=== PATIENT | male | born 1970 | race Caucasian/White ===

== ENCOUNTER 2018-10-19 07:55 | Day surgery (SDC) | payer OTHER ==
[~2018-10-19] VITALS: Ht 182.9 cm; Wt 114.8 kg
[~2018-10-19 07:55] MED LIST: PRINIVIL10 MG PO; RT ADVAIR 228 DISKUS IH; ZOLOFT 100MG100 MG PO
[2018-10-19 08:23] VITALS: BP 129/79; PULSE 74; TEMP 97.2
[2018-10-19] MEDS ORDERED: LOPRESSOR 550 MG/TAB PO (08:29)
[2018-10-19] MEDS ORDERED: NORVASC 5MG5 MG/TAB PO (08:31)
[2018-10-19] MEDS ORDERED: HYZAAR 50-12.1 UDTAB PO (08:31)
[2018-10-19] MEDS ORDERED: VASCEPA1 GM PO (08:32)
[2018-10-19 10:00] VITALS: BP 136/80; PULSE 71; TEMP 97.6
--- NOTE | 2018-10-19 10:00 | NUR ---
Pt arrived back to room from Endo procedure. Pt alert and oriented. Pt walked to chair with steady gait, x1 nurse assist. Denies any pain or nausea. Request sprite and crackers at this time. Vital signs stable. Pt's in room. CAll light in reach.
--- NOTE | 2018-10-19 10:02 | NUR ---
Report received from NAHID Rodriguez.
[2018-10-19 10:15] VITALS: BP 128/77; PULSE 69; TEMP 97.6
--- NOTE | 2018-10-19 10:21 | NUR ---
Pt tolerating drinks and crackers. Denies any nausea. Pt's family in room. Call light in reach.
[2018-10-19 10:30] VITALS: BP 135/84; PULSE 68; TEMP 97.6
--- NOTE | 2018-10-19 10:55 | NUR ---
Discharge paperwork given to pt. All questions answered to pt's satisfaction. Discharge instructions, med list and procedure information given to pt.
--- NOTE | 2018-10-19 10:58 | NUR ---
Pt discharged from unit. Pt left unit via wheelchair to private vehicle driven by pt's mother.
== END 2018-10-19 10:58 | disposition home or self-care (01) ==
LOC: SDCO 07:55
DX: D12.8 Benign neoplasm of rectum (principal); K57.30 Diverticulosis of large intestine without perforation or abscess without bleeding; K64.8 Other hemorrhoids; I10 Essential (primary) hypertension; E78.1 Pure hyperglyceridemia; Z90.49 Acquired absence of other specified parts of digestive tract; Z88.5 Allergy status to narcotic agent
CPT/HCPCS: J2250; J3010

== ENCOUNTER 2021-01-10 19:06 | Inpatient (IN) | payer BC ==
[~2021-01-10] VITALS: Ht 182.9 cm; Wt 110.6 kg
[~2021-01-10 19:06] MED LIST changes: +HYZAAR 50-12.1 UDTAB PO; +LOPRESSOR 550 MG/TAB PO; +NORVASC 5MG5 MG/TAB PO; +VASCEPA1 GM PO
[2021-01-10 20:54] LABS: HEMATOCRIT 42.3 % (42.0-52.0); HEMOGLOBIN 15.2 g/dl (13.5-18.0); MEAN CELL VOLUME 85 fl (80.0-100.0); MEAN CORPUSCULAR HEMOGLOBIN 31 pg (27.0-31.0); MEAN CORPUSCULAR HGB CONC 36 g/dl (33.0-37.0); MEAN PLATELET VOLUME 12.3 fl (7.4-10.4); PLATELET COUNT 102 K/mm3 (130-400); RED BLOOD COUNT 4.96 M/mm3 (4.20-5.60); REDCELL DISTRIBUTION WIDTH-CV 11.8 % (11.5-14.5)
[2021-01-10 21:05] LABS: ALANINE AMINOTRANSFERASE 69 U/L (4-49); ALBUMIN 4.1 gm/dL (3.5-5.0); ALKALINE PHOSPHATASE 69 U/L (50-136); ANION GAP 10 mmol/L (7-16); AST,SGOT 56 U/L (15-37); BILIRUBIN,TOTAL 0.3 mg/dL (0.0-1.0); BLOOD UREA NITROGEN 22 mg/dL (9-20); CALCIUM 8.7 mg/dL (8.4-10.2); CARBON DIOXIDE 28 mmol/L (22-30); CHLORIDE 97 mmol/L (98-107); CREATININE, serum 0.92 (0.66-1.25); GLUCOSE 116 mg/dL (74-106); POTASSIUM 3.2 mmol/L (3.4-5.0); SODIUM 135 mmol/L (137-145); TOTAL PROTEIN 7.8 gm/dL (6.4-8.2)
[2021-01-10 21:16] LABS: TROPONIN-I < 0.012 ng/mL (0.000-0.035)
[2021-01-10 21:56] LABS: BAND 16 % (0-10); LYMPHOCYTE 25 % (20.0-51.0); METAMYELOCYTE 2 % (0-0); NEUTROPHILS 55 % (42.0-75.2)
[2021-01-10 21:57] LABS: PLATELET ESTIMATE DECREASED (NORMAL)
[2021-01-10 22:17] LABS: HOWELL-JOLLY BODIES 1+
[2021-01-10] MEDS ORDERED: AMOXICILLIN 8751 TAB PO (22:52)
[2021-01-10] MEDS ORDERED: DIMETAPP COLD PO (22:54)
[2021-01-10] MEDS ORDERED: TOPROL XL 50MG50 MG PO (23:49)
[2021-01-10] MEDS ORDERED: APRESOLINE 10MG10 MG PO (23:50)
[2021-01-10] MEDS ORDERED: WELLBUTRIN XL150 MG PO (23:51)
[2021-01-10] MEDS ORDERED: VASCEPA1 GM PO (23:51)
[2021-01-11] VITALS (7 sets, daily range): BP systolic 108–150; BP diastolic 56–84; PULSE 69–81; TEMP 97.9–99
--- NOTE | 2021-01-11 01:30 | NUR ---
Patient to medical room 306 at this time. He has no complaints of pain and does not appear to be in acute distress. He wears 2 liters 02 and is satting 96% with signs of increased work of breathing. Patient is educated on room ammenities and visiting policy for COVID patients. Med Rec completed. Awaiting orders. Will continue to monitor.
[2021-01-11 02:00] LABS: C-REACTIVE PROTEIN 6.6 mg/dL (0.0-0.9)
[2021-01-11 06:49] LABS: INR 1.1 (0.8-3.0); PROTHROMBIN TIME 12.4 SECONDS (9.7-12.8)
[2021-01-11 06:51] LABS: PARTIAL THROMBOPLASTIN TIME 27.3 SECONDS (26.0-37.0)
[2021-01-11 06:54] LABS: HEMATOCRIT 42.5 % (42.0-52.0); MEAN CELL VOLUME 86 fl (80.0-100.0); MEAN CORPUSCULAR HEMOGLOBIN 30 pg (27.0-31.0); MEAN CORPUSCULAR HGB CONC 35 g/dl (33.0-37.0); PLATELET COUNT 97 K/mm3 (130-400); RED BLOOD COUNT 4.94 M/mm3 (4.20-5.60); REDCELL DISTRIBUTION WIDTH-CV 11.9 % (11.5-14.5)
[2021-01-11 07:54] LABS: BAND 15 % (0-10); EOSINOPHIL 1 % (0-4); LYMPHOCYTE 16 % (20.0-51.0); NEUTROPHILS 67 % (42.0-75.2); PLATELET ESTIMATE DECREASED (NORMAL)
--- NOTE | 2021-01-11 08:28 | NUR ---
Pt awake and alert upon entry, no C/O pain at this time. Shift assessments complete, left Pt call light in reach, bed in lowest position.
--- NOTE | 2021-01-11 14:54 | NUR ---
The patient is Covid-19 positive. SW contacted the patient via room phone to complete intake. The patient lives in [place] with his 14 year old daugher. She lives with him part-time. The patient denies DME use and is independent with ADLs. The patient's PCP is Dr. Jacobson and patient receives medications from [facility] in . The patient does not have advanced directives in the EMR but was interested in DPOA-HC form. Form provided. The patient plans to return home at discharge. The patient is currently on oxygen and may need it at discharge. *Discharge disposition: Home
--- NOTE | 2021-01-11 20:00 | NUR ---
Assessment complete. Patient states he is feeling "so much better" today; he has no complaints of pain. He is currently afebrile and states he did have diarrhea once during the day. He is wearing 2 liters oxygen and does not appear SOA at rest. IV fluids and abx currently infusing. He requests to take a shower later tonight. Will continue to monitor.
[2021-01-12 03:53] VITALS: BP 136/64; PULSE 85; TEMP 99.1
[2021-01-12 06:29] LABS: BASO % 0.1 % (0.0-2.0); GRAN # 6.7 (1.4-6.5); GRAN % 81.3 % (42.2-75.2); HEMATOCRIT 39.3 % (42.0-52.0); HEMOGLOBIN 13.8 g/dl (13.5-18.0); LYMPH # 1.1 (1.2-3.4); LYMPH % 13.5 % (20.0-51.0); MEAN CELL VOLUME 88 fl (80.0-100.0); MEAN CORPUSCULAR HEMOGLOBIN 31 pg (27.0-31.0); MEAN CORPUSCULAR HGB CONC 35 g/dl (33.0-37.0); MEAN PLATELET VOLUME 12.7 fl (7.4-10.4); MONO # 0.4 (0.1-0.6); MONO % 4.5 % (1.7-9.3); PLATELET COUNT 132 K/mm3 (130-400); RED BLOOD COUNT 4.49 M/mm3 (4.20-5.60)
[2021-01-12 06:43] LABS: CALCIUM 8.8 mg/dL (8.4-10.2); CREATININE, serum 0.65 (0.66-1.25); POTASSIUM 3.5 mmol/L (3.4-5.0)
[2021-01-12 08:49] VITALS: BP 117/52; PULSE 82; TEMP 99.9
--- NOTE | 2021-01-12 09:42 | NUR ---
Pt awake and alert upon entry, has prominent cough, no C/O pain at this time. Shift assessments complete, left Pt call light in reach, bed in lowest position.
--- NOTE | 2021-01-12 12:20 | NUR ---
Pt discharged to home, discussed discharge information with Pt, answered questions. Escorted Pt to entrance via WC, Pt left with family via private transportation.
[2021-01-12 12:24] VITALS: BP 138/63; PULSE 88; TEMP 98.7
[2021-01-12 12:57] LABS: PATHOLOGY DIFF REVIEW OK +
[2021-01-12 20:00] VITALS: BP 132/71; PULSE 81; TEMP 98.4
--- NOTE | 2021-01-12 20:00 | NUR ---
Assessment complete. No new concerns. Patient on 1 liter 02 and satting 92% with no signs of SOA at rest. He has no complaints of pain. He is currently afebrile and states he has not had a bowel movement today. Fluids infusing into right a/c IV. Will continue to monitor.
[2021-01-13] VITALS (7 sets, daily range): BP systolic 117–140; BP diastolic 63–72; PULSE 66–75; TEMP 97.6–98.6
--- NOTE | 2021-01-13 09:56 | NUR ---
Pt awake and alert upon entry, no C\O pain at this time. Shift assessment complete, left Pt call light in reach, bed in lowest position.
[2021-01-13 10:33] LABS: CALCIUM 8.5 mg/dL (8.4-10.2); CREATININE, serum 0.56 (0.66-1.25); POTASSIUM 3.5 mmol/L (3.4-5.0)
--- NOTE | 2021-01-13 18:03 | NUR ---
Pt doing well has no C/O pain or SOA during the day. 1600 VS check Pt O2 saturation <90% increased O2 flow to 2 lpm NC, saturation increased to 90+%, other VS have remained stable.
[2021-01-14 03:30] VITALS: BP 147/77; PULSE 65; TEMP 98.4
--- NOTE | 2021-01-14 06:19 | NUR ---
Patient calm and cooperative throughout the night. No new issues noted or reported by patient. O2 was 89-90% on 2L NC at 0000 V/S so Oxygen was increased to 3L NC. PRN cough medicine administered as requested per 's orders.
[2021-01-14 06:26] LABS: HEMATOCRIT 38.6 % (42.0-52.0); HEMOGLOBIN 13.1 g/dl (13.5-18.0); MEAN CELL VOLUME 88 fl (80.0-100.0); MEAN CORPUSCULAR HEMOGLOBIN 30 pg (27.0-31.0); MEAN CORPUSCULAR HGB CONC 34 g/dl (33.0-37.0); MEAN PLATELET VOLUME 12.3 fl (7.4-10.4); PLATELET COUNT 150 K/mm3 (130-400)
[2021-01-14 06:39] LABS: ALBUMIN 3.2 gm/dL (3.5-5.0); BILIRUBIN,TOTAL 0.3 mg/dL (0.0-1.0); CALCIUM 8.5 mg/dL (8.4-10.2); CREATININE, serum 0.52 (0.66-1.25); POTASSIUM 3.8 mmol/L (3.4-5.0); TOTAL PROTEIN 6.8 gm/dL (6.4-8.2)
[2021-01-14 07:55] VITALS: BP 126/68; PULSE 63; TEMP 97.7
--- NOTE | 2021-01-14 08:40 | NUR ---
Shift assessment complete. Pt lying in bed watching tv, denies pain or dizziness. Does report some SOA w/ambulation. Remains on 3 lpm O2 NC. Lungs CTA. Heart RRR. A&Ox4. Robitussin given per orders for dry cough. Denies needs at this time. Call light in reach.
[2021-01-14 08:48] LABS: BAND 18 % (0-10); LYMPHOCYTE 13 % (20.0-51.0); METAMYELOCYTE 1 % (0-0); NEUTROPHILS 59 % (42.0-75.2); PLATELET ESTIMATE NORMAL (NORMAL)
[2021-01-14 11:53] VITALS: BP 125/74; PULSE 66; TEMP 97.9
[2021-01-14 17:20] VITALS: BP 128/70; PULSE 66; TEMP 97.9
--- NOTE | 2021-01-14 17:48 | NUR ---
Nurse's aid called this RN stating pt's O2 sats mid to high 80s on 2 lpm, increased to 4 lpm w/max saturation of 88%. This RN at bedside and monitoring sats. Remained at bedside for approximately 20 minutes, O2 increased to 8 lpm HFNC w/sats 90-91%. RT notified and at bedside. notified of increased O2 needs.
[2021-01-14 21:23] VITALS: BP 136/69; PULSE 66; TEMP 97.7
[2021-01-14 23:21] VITALS: BP 135/75; PULSE 66; TEMP 98
[2021-01-15 05:03] VITALS: BP 123/73; PULSE 64; TEMP 98
--- NOTE | 2021-01-15 05:06 | NUR ---
PATIENT CONTINUES ON 8L HIGH FLOW NC WITH OXYGEN SATURATION AT 94%. PATIENT REPORTS HE FEELS GOOD AND DOES NOT FEEL SOB. NO NEW ISSUES NOTE OR REPORTED BY PATIENT THROUGHOUT THIS SHIFT.
[2021-01-15 08:00] VITALS: BP 117/65; PULSE 66; TEMP 98.4
--- NOTE | 2021-01-15 08:00 | NUR ---
Patient sleeping in bed, easily awakened with verbal command. Patient A&Ox3 8L HF NC O2. No reported SOB. IV CDI. Droplet/Contact precautions in place. Denies pain and discomfort. No further needs expressed from the patient. Call light withinr reach
[2021-01-15 12:00] VITALS: BP 134/68; PULSE 64
--- NOTE | 2021-01-15 14:42 | NUR ---
The patient's oxygen needs increased to 7-10 liters. SW to continue to monitor.
[2021-01-15 16:00] VITALS: BP 141/73; PULSE 69; TEMP 98.2
--- NOTE | 2021-01-15 18:18 | NUR ---
Patient has been resting in bed most of the shift. A&Ox3, stating that its a little lonely in his room. VSS 8L HF NC. No reported SOA. IV CDI. Droplet/contact precautions in place. No further needs expressed from the patient. Call light within reach
--- NOTE | 2021-01-15 20:00 | NUR ---
Assessment complete. Patient alert and oriented with no complaints of pain. He is afebrile and currently on 8 liters hi-luisa NC, satting 93%. He states he does not feel SOA. Lungs are diminished with fine crackles in the bases. No additional concerns are noted. Call light in reach, will continue to monitor.
[2021-01-15 21:22] VITALS: BP 147/71; PULSE 65; TEMP 97.8
[2021-01-15] MEDS ORDERED: VASCEPA1 GM PO (21:51)
[2021-01-15 23:48] VITALS: BP 153/75; PULSE 67; TEMP 97.6
[2021-01-16 05:09] VITALS: BP 148/72; PULSE 58; TEMP 97.8
[2021-01-16 07:34] VITALS: BP 128/62; PULSE 58; TEMP 97.8
--- NOTE | 2021-01-16 07:44 | NUR ---
Pt assessment complete. Pt sitting up in bed watching television. He is A/O x4. His breathing is even and unlabored on 8L O2 via NC. Pt reports SOB is not worsening, does have some with exertion but unchanged. Dry cough with phlegm present. Denies N/V. Has not had any diarrhea in several days. Pt encouraged to sit up out of bed as tolerated. No needs at this time. Call light within reach.
[2021-01-16 12:15] VITALS: BP 124/68; PULSE 60; TEMP 97.5
--- NOTE | 2021-01-16 14:02 | NUR ---
Maggie, Financial Counselor, completed an FAA with the patient over the phone and just needs his signature on the form. The patient is COVID positive. JOSLYN staffed with the patient's RN to obain the signature. His RN requested that SW place the form on his chart and she will bring it in with her, the next time she goes into his room.
--- NOTE | 2021-01-16 15:11 | NUR ---
The patient's RN obtained the patient's signature on the FAA. JOSLYN emailed the signed form to financial counselorMaggie.
[2021-01-16 16:27] VITALS: BP 134/74; PULSE 65; TEMP 97.9
--- NOTE | 2021-01-16 20:00 | NUR ---
Assessment complete. Patient alert and oriented with no complaints of pain. He currently wears 6 liters 02 and is only SOA with exertion. He is afebrile. Fine crackles are ausclutated in lung bases. No edema is noted. Right wrist IV is removed and new site initiated per patient request. No new concerns, call light in reach. Will continue to monitor.
[2021-01-16 21:44] VITALS: BP 142/66; PULSE 71; TEMP 97.7
[2021-01-17 01:27] VITALS: BP 123/62; PULSE 58; TEMP 98.1
[2021-01-17 04:53] VITALS: BP 127/67; PULSE 61; TEMP 98.1
[2021-01-17 06:55] LABS: HEMATOCRIT 41.6 % (42.0-52.0); HEMOGLOBIN 14.2 g/dl (13.5-18.0); MEAN CELL VOLUME 87 fl (80.0-100.0); MEAN CORPUSCULAR HEMOGLOBIN 30 pg (27.0-31.0); MEAN CORPUSCULAR HGB CONC 34 g/dl (33.0-37.0); MEAN PLATELET VOLUME 11.5 fl (7.4-10.4); PLATELET COUNT 265 K/mm3 (130-400); RED BLOOD COUNT 4.76 M/mm3 (4.20-5.60)
[2021-01-17 07:06] LABS: CREATININE, serum 0.6 (0.66-1.25)
[2021-01-17 07:37] LABS: BAND 1 % (0-10); LYMPHOCYTE 19 % (20.0-51.0); MYELOCYTE 1 % (0-0); NEUTROPHILS 70 % (42.0-75.2)
[2021-01-17 07:41] LABS: PLATELET ESTIMATE NORMAL (NORMAL)
[2021-01-17 09:21] VITALS: BP 1118/49; BP 118/49; PULSE 65; TEMP 97.9
--- NOTE | 2021-01-17 09:30 | NUR ---
Pt awake and alert upon entry, O2 @ 4 lpm 90+ saturation. No C/O pain at this time. Shift assessments complete, left Pt call light in reach, bed in lowest position.
[2021-01-17 12:00] VITALS: BP 119/71; PULSE 62; TEMP 98.2
[2021-01-17 15:48] VITALS: BP 120/65; PULSE 66; TEMP 98.6
--- NOTE | 2021-01-17 18:20 | NUR ---
Pt resting in the room, has had decreasing need for O2 during the day today. No other issues noted. VS have remained stable.
--- NOTE | 2021-01-17 20:00 | NUR ---
Assessment complete. Patient is alert and oriented with no complaints of pain. He is satting 96% on 3 liters oxygen and is able to be titrated to 2 liters at this time, where he is satting 93-94%. No edema is noted. Lung sounds are diminished with fine crackles in bases. Patient is afebrile. No new concerns, will continue to monitor .
[2021-01-17 20:43] VITALS: BP 127/71; PULSE 68; TEMP 98.5
[2021-01-18 00:51] VITALS: BP 139/73; PULSE 64; TEMP 98.3
[2021-01-18 05:32] VITALS: BP 130/68; PULSE 62; TEMP 98
--- NOTE | 2021-01-18 07:05 | NUR ---
Checked in on pt from the door following report. Pt ambulating from bathroom with steady gait, denies needs at this time. Call light in reach.
[2021-01-18 08:01] VITALS: BP 110/59; PULSE 60; TEMP 97.9
[2021-01-18] MEDS ORDERED: PROAIR HFA0.09 MG/AC IH (09:09)
[2021-01-18] MEDS ORDERED: DECADRON6 MG PO (09:10)
--- NOTE | 2021-01-18 11:39 | NUR ---
The patient is to tentatively discharge home today, 01/18. RT staffed with this SW and the patient does not qualify for oxygen. There are no additional needs.
--- NOTE | 2021-01-18 11:45 | NUR ---
Discharge instructions reviewed with pt regarding new medications and follow-up appointments. Pt verbalizes understanding, questions invited and answered. Medications received from pharmacy and returned to pt. Pt discharged to home, escorted out of facility via WC accompanied by this nurse. Pt's family providing ride home.
== END 2021-01-18 11:50 | disposition home or self-care (01) | DRG 177 ==
LOC: COL.ER 19:06 → MEDICAL 21:39
PROVIDERS: Emergency Medicine; Internal Medicine; Nurse Practitioner Family; ADMIT Student in an Organized Health Care Education/Training Program
PROC: XW033E5 Introduction of Remdesivir Anti-infective into Peripheral Vein, Percutaneous Approach, New Technology Group 5 (ICD-10-PCS; principal; 2021-01-12)
DX: U07.1 COVID-19 (principal); J96.01 Acute respiratory failure with hypoxia; E22.2 Syndrome of inappropriate secretion of antidiuretic hormone; E86.0 Dehydration; J45.909 Unspecified asthma, uncomplicated; D69.6 Thrombocytopenia, unspecified; D72.819 Decreased white blood cell count, unspecified; E87.6 Hypokalemia; F32.9 Major depressive disorder, single episode, unspecified; Z90.49 Acquired absence of other specified parts of digestive tract; I10 Essential (primary) hypertension
CPT/HCPCS: 99223-AI; 99232-AI; 99233-AI; 99239; A9284; J0696; J1100; J1650; J2930; J7030; J7050; J8540

== ENCOUNTER → 2023-12-24 | Outpatient (CLI) | payer BC ==
[~2023-12-24] MED LIST changes: +AMOXICILLIN 8751 TAB PO; +APRESOLINE 10MG10 MG PO; +DECADRON6 MG PO; +DIMETAPP COLD PO; +Gadoterate 20 ML VIAL IV ONE; +PROAIR HFA0.09 MG/AC IH; +TOPROL XL 50MG50 MG PO; +WELLBUTRIN XL150 MG PO
== END ==
LOC: COL.RAD 07:14
DX: R42 Dizziness and giddiness (principal); R44.0 Auditory hallucinations; R26.89 Other abnormalities of gait and mobility; R90.89 Other abnormal findings on diagnostic imaging of central nervous system
CPT/HCPCS: A9575